=== PATIENT | male | born 1950 ===

== ENCOUNTER 2023-05-11 13:21 | Inpatient (IN) | payer OTHER, MEDICARE ==
[~2023-05-11 13:21] MED LIST: Iopamidol-370 76% 500 ML MDV (1 ML CHARGE) ONE
[2023-05-11] MEDS ORDERED: Morphine 4 MG/ML VIAL ONE (13:43)
[2023-05-11] MEDS ORDERED: Ondansetron PF 4 MG/2 ML Vial ONE (13:43)
[2023-05-11] MEDS ORDERED: Boostrix 0.5 ML (Tdap) VIAL (>/=7 yrs of age) ONE (13:44)
[2023-05-11 14:55] LABS: #Monocytes 0.5 thou/uL (0.11-0.59); #Neutrophils 17.6 thou/uL (1.40-6.50); %Basophils 0.2 % (0.0-1.0); %Eosinophils 0.2 % (0.0-10.0); %Monocytes 2.7 % (0.0-10.0); %Neutrophils 87.8 % (42.0-75.0); Hematocrit 33.6 % (42.0-52.0); Hemoglobin 11.3 g/dL (14.0-18.0); Mean Corpuscular HGB CONC 33.6 g/dL (32.0-36.0); Mean Corpuscular Hemoglobin 30.3 pg (27.0-31.0); Mean Corpuscular Volume 90.1 fl (78.0-98.0); Mean Platelet Volume 8.8 fL (7.4-10.4); Platelet Count 143 10x3/uL (130-400); RBC Distribution Width 15.2 % (11.5-14.5); Red Blood Cell (RBC) Count 3.73 mill/uL (4.70-6.10)
[2023-05-11 15:24] LABS: ALT (SGPT) 32 U/L (8-55); AST (SGOT) 55 U/L (5-34); Albumin 3.3 g/dL (3.4-4.8); Alkaline Phosphatase 52 U/L (40-110); Anion Gap 10 mmol/L (10-20); BUN (Urea Nitrogen) 19 mg/dL (8.4-25.7); Bilirubin, Total 0.4 mg/dL (0.2-1.2); Calc. Creatinine Clearance 0 mL/min (70-130); Calcium 8.1 mg/dL (7.8-10.44); Carbon Dioxide 20 mmol/L (23-31); Chloride 111 mmol/L (98-107); Estimated GFR 81; Globulin 1.7 g/dL (2.4-3.5); Glucose 146 mg/dL (83-110); Potassium 3.7 mmol/L (3.5-5.1); Sodium 137 mmol/L (136-145)
[2023-05-11] MEDS ORDERED: Lidocaine 1% PF 5 ML VIAL ONE (15:44)
[2023-05-11] MEDS ORDERED: Ipratropium/Albuterol 3 ML NEB NEB PRN (16:00)
[2023-05-11] MEDS ORDERED: Dextrose 50% Abboject 50 ML SYRINGE SLOW IVP PRN (16:00)
[2023-05-11] MEDS ORDERED: Glucagon 1 MG/ML KIT IM PRN (16:00)
[2023-05-11] MEDS ORDERED: Ondansetron ODT 4 MG TAB PO PRN (16:00)
[2023-05-11] MEDS ORDERED: Ondansetron PF 4 MG/2 ML Vial IVP PRN (16:00)
[2023-05-11] MEDS ORDERED: Dextrose 5% in Water 1,000 ML IV PRN (16:00)
[2023-05-11] MEDS ORDERED: Rib Fracture Protocol PO SCH (16:00)
[2023-05-11] MEDS ORDERED: Ketorolac Tromethamine 30 MG (1 mL) VIAL ONE (17:03)
[2023-05-11 18:45] VITALS: BMI 25.4
[2023-05-11] MEDS: Ipratropium/Albuterol 3 ML NEB NEB SCH (19:17)
[2023-05-11] MEDS: Cyclobenzaprine 10 MG TAB PO PRN (21:15)
[2023-05-11] MEDS: Gabapentin 100 MG CAP PO SCH (21:15)
[2023-05-11] MEDS: Ibuprofen 200 MG TAB PO SCH (21:17)
[2023-05-11 21:20] VITALS: BP 127/89; TEMP 97.9
[2023-05-11] MEDS: traMADol HCl 50 MG TAB PO SCH (21:22)
[2023-05-11] MEDS: Acetaminophen 500 MG TAB PO SCH (21:22)
[2023-05-11] MEDS ORDERED: Calcium Chloride 1 GM/10 ML Abboject SYRINGE ONE (23:11)
[2023-05-11] MEDS ORDERED: Sodium Bicarb 50 MEQ/50 ML Abboject 8.4% SYRINGE ONE (23:11)
[2023-05-11] MEDS ORDERED: EPINEPHrine 1 MG/10 ML Abboject SYRINGE ONE (23:11)
[2023-05-15] MEDS ORDERED: FLU VACC QS2023(65UP)/MF59C/PF 60 MCG/0.5 ML SYRINGE IM ONE (09:00)
== END 2023-05-11 23:30 | disposition expired | DRG 964 ==
LOC: ERS 13:21 → SJJU 18:17
PROVIDERS: ADMIT Surgery; ATTEND Surgery
PROC: 5A12012 Performance of Cardiac Output, Single, Manual (ICD-10-PCS; principal; 2023-05-11)
DX: S72.142A Displaced intertrochanteric fracture of left femur, initial encounter for closed fracture (principal); E87.20 Acidosis, unspecified; S27.0XXA Traumatic pneumothorax, initial encounter; S82.102A Unspecified fracture of upper end of left tibia, initial encounter for closed fracture; S22.42XA Multiple fractures of ribs, left side, initial encounter for closed fracture; S12.690A Other displaced fracture of seventh cervical vertebra, initial encounter for closed fracture; S52.592A Other fractures of lower end of left radius, initial encounter for closed fracture; S22.20XA Unspecified fracture of sternum, initial encounter for closed fracture; S22.088A Other fracture of T11-T12 vertebra, initial encounter for closed fracture; I46.9 Cardiac arrest, cause unspecified; E78.00 Pure hypercholesterolemia, unspecified; F17.210 Nicotine dependence, cigarettes, uncomplicated; I71.40 Abdominal aortic aneurysm, without rupture, unspecified; V29.99XA Rider (driver) (passenger) of other motorcycle injured in unspecified traffic accident, initial encounter; Z79.899 Other long term (current) drug therapy
CPT/HCPCS: 25505; 36415; 36416; 70450; 71045; 71260; 72125; 74177; 80053; 85025; 86850; 86900; 86901; 90471; 90715; 93005; 96374; 96375; G0390; J0171; J1885; J2270; J2405; J7620; Q9967